=== PATIENT | male | born 1970 | race Caucasian/White ===

== ENCOUNTER 2020-06-12 10:20 | Emergency (ER) | payer OTHER ==
[~2020-06-12 10:20] MED LIST: TORADOL 10 MG T10 MG PO
== END 2020-06-12 15:00 | disposition home or self-care (01) ==
LOC: ER1 10:20
DX: S13.4XXA Sprain of ligaments of cervical spine, initial encounter (principal); S80.01XA Contusion of right knee, initial encounter; S80.02XA Contusion of left knee, initial encounter; S30.0XXA Contusion of lower back and pelvis, initial encounter; I10 Essential (primary) hypertension; F17.220 Nicotine dependence, chewing tobacco, uncomplicated; V49.9XXA Car occupant (driver) (passenger) injured in unspecified traffic accident, initial encounter; Y92.481 Parking lot as the place of occurrence of the external cause
CPT/HCPCS: 72100; 72125; 72131; 73564; 96374; 99284; J1885

== ENCOUNTER 2020-06-29 17:08 | Emergency (ER) | payer OTHER ==
[2020-06-29 20:33] LABS: HEMOGLOBIN 17.7 gm/dl (14.0-17.5); RED BLOOD COUNT 5.52 M/UL (4.20-5.50); WHITE BLOOD COUNT 6.6 K/UL (4.5-11.0)
[2020-06-29 21:00] LABS: BUN/CREATININE RATIO 8 (0-10)
== END 2020-06-29 22:25 | disposition home or self-care (01) ==
LOC: ER1 17:08
PROVIDERS: Family Medicine
DX: S29.011A Strain of muscle and tendon of front wall of thorax, initial encounter (principal); S30.1XXA Contusion of abdominal wall, initial encounter; F11.90 Opioid use, unspecified, uncomplicated; R51.9 Headache, unspecified; I10 Essential (primary) hypertension; E78.5 Hyperlipidemia, unspecified; Z79.899 Other long term (current) drug therapy; V49.40XA Driver injured in collision with unspecified motor vehicles in traffic accident, initial encounter
CPT/HCPCS: 70450; 71260; 80053; 82550; 82553; 83690; 83874; 84484; 85025; 93005; 99284; Q9967